=== PATIENT | male | born 1995 | race Caucasian/White ===

== ENCOUNTER 2018-08-22 15:45 | Emergency (ER) | payer SELFPAY ==
[2018-08-22 15:50] VITALS: BP 139/70; PULSE 72; RESP 16; TEMP 37.2; O2SAT 97
--- NOTE | 2018-08-22 16:53 | W.ED.GENAD ---
Discharge Plan Disposition Patient Disposition: HOME Condition: Improving Discharge Details Chief Complaint: Laceration Clinical Impression: Laceration of finger of left hand Primary Care Provider: Dwayne Araujo ED Provider: Brad Leavitt Home Meds and New Rx's Prescriptions: New sulfamethoxazole-trimethoprim [Bactrim DS] 800-160 mg tablet 1 tab PO BID Qty: 6 RF: 0 Discharge Instructions Instructions: Finger Laceration (ED) Additional Instructions: Watch for any signs of infection return immediately if these occur. Otherwise keep dressing on for 24-48 hours and then after that keep wound clean and dry and cover if going to be in any dirty environments. Return to the emergency department in 10 days for suture removal. Referrals: [facility] Emergency Dept. [Outside] (Return to the emergency department in 7-10 days for suture removal.) Discharge Data Discharge Date/Time-TO BE ENTERED AT DEPARTURE: 08/22/18 17:07 Medical Decision Making Patient reports approximately 1 hour prior to arrival he was working on some wood splitting machinery when a piece of metal lacerated his left little finger. He does state that there was quite a bit of dirt and oil on his hands on the laceration occurred. Patient denies any other injury or trauma. Physical exam shows a laceration to the fifth digit of the left hand with some contamination and flap-like in nature otherwise patient has two-point discrimination, full movement, appropriate strength in tendon function. Patient gave verbal consent for closure and see procedure note for closure. Due to penicillin allergy patient was placed on Bactrim for 3 days due to contaminated wound and encouraged to return for any signs of infection. After discussion of diagnosis and plan of care patient has no further needs, questions, or concerns and states clear understanding to return to the emergency department for any worsening symptoms. HPI General Mode of arrival: ambulatory. Date/Time Provider Initiated Documentation: 08/22/18 15:52. Limitations to Documentation: no limitations. Information obtained by: patient. History of Present Illness 23 year old M presents to the emergency department with the chief complaint of LEFT LITTLE FINGER LACERATION, described as moderate, with intensity rated at 5. Quality is described as aching, and is localized to the left and upper extremity. Patient reports no radiation. Patient started experiencing this hour(s) (1) No relieving factors improve symptom(s), No exacerbating factors reported . Patient notes no other symptoms.. Patient did receive the following treatments prior to arrival, none Related Data Home Medications Medication Instructions Recorded Confirmed sulfamethoxazole-trimethoprim 1 tab PO BID #6 tab 08/22/18 [Bactrim DS] Previous Rx's Medication Instructions Recorded sulfamethoxazole-trimethoprim 1 tab PO BID #6 tab 08/22/18 [Bactrim DS] Allergies Allergy/AdvReac Type Severity Reaction Status Date / Time shellfish derived Allergy Severe Anaphylaxsi Unverified 08/22/18 15:53 s Penicillins Allergy Unverified 08/22/18 15:53 General Stated Complaint: Laceration NANCY: 4 Review of Systems Cardiovascular Denies syncope, Denies lightheadedness and Denies dyspnea Respiratory Denies dyspnea Musculoskeletal Denies deformity, Denies limited range of motion and Denies numbness Integumentary/Breasts Reports as per HPI Neurologic Denies syncope and Denies numbness [facility] Medical History Tobacco use disorder Social History Smoking/Tobacco Use Status: Current every day Exam Const General: cooperative and no acute distress Orientation: alert, awake and oriented x3 Limitations: mental status not altered Resp Effort & Inspection: normal respiratory effort and able to speak in complete sentences Cardio Rate: regular rate Rhythm: regular rhythm Neuro General: alert, awake, oriented x3, gait normal, tone normal, moves all extremities, normal light touch, pain and propioception and no focal motor deficits Motor: no movement abnormalities noted Sensory Exam: no sensory deficits noted Extrem Right upper extremity: normal to inspection Left upper extremity: hand Details: neurosensory exam normal, tendon exam normal, normal ROM of fingers and laceration (5th digit approx 3 cm) Course Vital Signs Temperature 37.2 C 08/22/18 15:50 Pulse 72 08/22/18 15:50 Respiratory Rate 16 08/22/18 15:50 Blood Pressure 139/70 08/22/18 15:50 Pulse Oximetry 97 08/22/18 15:50 Temperature 37.2 C 08/22/18 15:50 Temperature Source Temporal Artery Scan 08/22/18 15:50 Pulse 72 08/22/18 15:50 Respiratory Rate 16 08/22/18 15:50 Blood Pressure 139/70 08/22/18 15:50 Pulse Oximetry 97 08/22/18 15:50 Pain Level 6 08/22/18 15:50 Procedures Laceration Laceration 1: Site: hand (LEFT LITTLE FINGER) Side (If applicable): left Size (cm): 3 Description: flap, irregular and contaminated Depth: simple, single layer Local Anesthetic: Lidocaine 1% (Digital block) Pre-repair: wound explored, irrigated extensively, deep structures intact and wound margins revised Skin layer closed with: nylon Size (cm): 4-0 Number of sutures: 6 Technique: simple, interrupted
--- NOTE | 2018-08-22 16:57 | ED.GENADUL_ITS ---
Discharge Plan Disposition Patient Disposition: HOME Condition: Improving Discharge Details Chief Complaint: Laceration Clinical Impression: Laceration of finger of left hand Primary Care Provider: Dwayne Araujo ED Provider: Brad Leavitt Home Meds and New Rx's Prescriptions: New sulfamethoxazole-trimethoprim [Bactrim DS] 800-160 mg tablet 1 tab PO BID Qty: 6 RF: 0 Discharge Instructions Instructions: Finger Laceration (ED) Additional Instructions: Watch for any signs of infection return immediately if these occur. Otherwise keep dressing on for 24-48 hours and then after that keep wound clean and dry and cover if going to be in any dirty environments. Return to the emergency department in 10 days for suture removal. Referrals: [facility] Emergency Dept. [Outside] (Return to the emergency department in 7-10 days for suture removal.) Discharge Data Discharge Date/Time-TO BE ENTERED AT DEPARTURE: 08/22/18 17:07 Medical Decision Making Patient reports approximately 1 hour prior to arrival he was working on some wood splitting machinery when a piece of metal lacerated his left little finger. He does state that there was quite a bit of dirt and oil on his hands on the laceration occurred. Patient denies any other injury or trauma. Physical exam shows a laceration to the fifth digit of the left hand with some contamination and flap-like in nature otherwise patient has two-point discrimination, full movement, appropriate strength in tendon function. Patient gave verbal consent for closure and see procedure note for closure. Due to penicillin allergy patient was placed on Bactrim for 3 days due to contaminated wound and encouraged to return for any signs of infection. After discussion of diagnosis and plan of care patient has no further needs, questions , or concerns and states clear understanding to return to the emergency department for any worsening symptoms. HPI General Mode of arrival: ambulatory . Date/Time Provider Initiated Documentation: 08/22/18 15:52 . Limitations to Documentation: no limitations . Information obtained by: patient . History of Present Illness 23 year old M presents to the emergency department with the chief complaint of LEFT LITTLE FINGER LACERATION, described as moderate, with intensity rated at 5. Quality is described as aching, and is localized to the left and upper extremity. Patient reports no radiation. Patient started experiencing this hour(s) (1) No relieving factors improve symptom(s), No exacerbating factors reported . Patient notes no other symptoms.. Patient did receive the following treatments prior to arrival, none Related Data Home Medications Medication Instructions Recorded Confirmed sulfamethoxazole-trimethoprim 1 tab PO BID #6 tab 08/22/18 [Bactrim DS] Previous Rx's Medication Instructions Recorded sulfamethoxazole-trimethoprim 1 tab PO BID #6 tab 08/22/18 [Bactrim DS] Allergies Allergy/AdvReac Type Severity Reaction Status Date / Time shellfish derived Allergy Severe Anaphylaxsi Unverified 08/22/18 15:53 s Penicillins Allergy Unverified 08/22/18 15:53 General Stated Complaint: Laceration NANCY: 4 Review of Systems Cardiovascular Denies syncope, Denies lightheadedness and Denies dyspnea Respiratory Denies dyspnea Musculoskeletal Denies deformity, Denies limited range of motion and Denies numbness Integumentary/Breasts Reports as per HPI Neurologic Denies syncope and Denies numbness [facility] Medical History Tobacco use disorder Social History Smoking/Tobacco Use Status: Current every day Exam Const General: cooperative and no acute distress Orientation: alert, awake and oriented x3 Limitations: mental status not altered Resp Effort & Inspection: normal respiratory effort and able to speak in complete sentences Cardio Rate: regular rate Rhythm: regular rhythm Neuro General: alert, awake, oriented x3, gait normal, tone normal, moves all extremities, normal light touch, pain and propioception and no focal motor deficits Motor: no movement abnormalities noted Sensory Exam: no sensory deficits noted Extrem Right upper extremity: normal to inspection Left upper extremity: hand Details: neurosensory exam normal, tendon exam normal , normal ROM of fingers and laceration (5th digit approx 3 cm) Course Vital Signs Temperature 37.2 C 08/22/18 15:50 Pulse 72 08/22/18 15:50 Respiratory Rate 16 08/22/18 15:50 Blood Pressure 139/70 08/22/18 15:50 Pulse Oximetry 97 08/22/18 15:50 Temperature 37.2 C 08/22/18 15:50 Temperature Source Temporal Artery Scan 08/22/18 15:50 Pulse 72 08/22/18 15:50 Respiratory Rate 16 08/22/18 15:50 Blood Pressure 139/70 08/22/18 15:50 Pulse Oximetry 97 08/22/18 15:50 Pain Level 6 08/22/18 15:50 Procedures Laceration Laceration 1: Site: hand (LEFT LITTLE FINGER) Side (If applicable): left Size (cm): 3 Description: flap, irregular and contaminated Depth: simple, single layer Local Anesthetic: Lidocaine 1% (Digital block) Pre-repair: wound explored, irrigated extensively, deep structures intact and wound margins revised Skin layer closed with: nylon Size (cm): 4-0 Number of sutures: 6 Technique: simple, interrupted
[2018-08-22 17:18] VITALS: BP 139/70; PULSE 72; RESP 16; TEMP 37.2; O2SAT 97
[2018-08-22] MEDS: Sulfameth/Trimeth DS TAB 1 TAB PO (17:18)
== END 2018-08-22 17:07 | disposition home or self-care (01) ==
PROVIDERS: Emergency Provider Nurse Practitioner Family; PCP Pediatrics
DX: S61.217A Laceration without foreign body of left little finger without damage to nail, initial encounter (principal); W26.8XXA Contact with other sharp object(s), not elsewhere classified, initial encounter
CPT/HCPCS: 12002; 90471; 99283

== ENCOUNTER → 2024-06-11 15:53 | Outpatient (CLI) | payer MEDICAID, SELFPAY ==
--- NOTE | 2024-06-11 14:00 | DI.CT_ITS ---
Exam(s) CT HEAD WO EXAM: CT HEAD WO CLINICAL HISTORY: head injury, struck with falling branch, R/o Bleed S09.90XA INJURY. TECHNIQUE: Imaging Protocol: Axial computed tomography images with coronal and sagittal reformatted images were created and reviewed COMPARISON: No exams were available for comparison FINDINGS: There are no skull fractures. Minimal mucosal thickening seen in the posterior wall the right maxilla ry sinus. No true fluid level therein. There is no evidence of intracranial hemorrhage, mass effect, or shift of midline structures. There are no extra-axial fluid collections. The ventricles are not enlarged or shifted and there is no blo od within the ventricular system nor within the basal cisterns. IMPRESSION: No acute intracranial findings on this noninfused CT scan of the brain. RADIATION DOSE DELIVERED: 760.69mGy.cm Total DLP DATA REPOSITORY: All CT scans at this facility are submitted to the National Radiology Data Registry (NRDR) Dose Index Registry (DIR) with the [employer] ([employer]). RADIATION OPTIMIZATION: All CT scans at this facility use at least one of these dose optimization te chniques: automated exposure control; mA and/or kV adjustment per patient size (includes targeted exa ms where dose is matched to clinical indication); or iterative reconstruction.
== END ==
PROVIDERS: Visit Provider Physician Assistant
DX: S09.90XA Unspecified injury of head, initial encounter (principal)
CPT/HCPCS: 70450